=== PATIENT | female | born 1960 | race Caucasian/White ===

== ENCOUNTER 2021-05-05 14:57 | Emergency (ER) | payer OTHER ==
[~2021-05-05 14:57] MED LIST: METFORMIN HCL500 MG PO; NEXIUM20 MG PO; NORCO 5-325 TA1 EACH PO; NORVASC5 MG PO; PHENERGAN25 M1 PO
[2021-05-05 18:48] LABS: BASOPHIL 0.4 % (0-2); EOSINOPHIL 3.5 % (0-5); HCT 43.7 % (37.0-47.0); HGB 13.9 g/dl (12.5-16.0); LYMPHOCYTE 15.6 % (15-48); MCH 27.2 pg (25.0-31.0); MCHC 31.8 g/dL (32.0-36.0); MCV 85.5 fL (78.0-100.0); MONOCYTE 9.4 % (0-12); MPV 10.9 fL (6.0-9.5); NEUTROPHIL 70.2 % (41-80); NRBC 0; PLT 232 K/uL (150-400); RBC 5.11 M/uL (4.20-5.40); RDW 13.6 % (11.5-14.0); WBC 8.2 K/uL (4.0-10.5)
[2021-05-05 18:57] LABS: BUN/CREAT RATIO (CALC) 18.6 RATIO; CREATININE 1.02 mg/dL (0.51-0.95); POTASSIUM 4.5 mmol/L (3.5-5.1)
[2021-05-05 20:32] LABS: BILIRUBIN NEGATIVE (NEGATIVE); BLOOD NEGATIVE Ery/uL (NEGATIVE); CLARITY CLEAR (CLEAR); COLOR YELLOW (YELLOW); GLUCOSE (U) NORMAL (NORMAL); LEUKOCYTES 3+ Leu/uL (NEGATIVE); NITRITE NEGATIVE (NEGATIVE); PROTEIN NEGATIVE (NEGATIVE); SPECIFIC GRAVITY 1.015 (1.001-1.030); UROBILINOGEN 0.2 mg/dL (0.2-1.0); pH 8.5 (5.0-9.0)
[2021-05-05 20:37] LABS: BACTERIA 1+
== END 2021-05-05 21:14 | disposition home or self-care (01) ==
LOC: FER 14:57
PROVIDERS: Nurse Practitioner Family
DX: U07.1 COVID-19 (principal); I12.9 Hypertensive chronic kidney disease with stage 1 through stage 4 chronic kidney disease, or unspecified chronic kidney disease; N18.9 Chronic kidney disease, unspecified; Z23 Encounter for immunization
CPT/HCPCS: 36415; 71045; 80048; 81001; 85025; M0245; Q0245